=== PATIENT | female | born 1990 ===

== ENCOUNTER 2021-10-30 06:18 | Day surgery (SDC) | payer OTHER | END 2021-10-30 16:05 | disposition home or self-care (01) | LOC: CIR.AMB 06:18 | PROVIDERS: ATTEND Colon & Rectal Surgery | DX: K60.0 Acute anal fissure (principal); K62.4 Stenosis of anus and rectum; Z86.16 Personal history of COVID-19; Z20.822 Contact with and (suspected) exposure to COVID-19 ==